=== PATIENT | male | born 1935 ===

== ENCOUNTER 2017-01-11 15:28 | Outpatient (CLI) | payer MEDICARE, OTHER ==
--- NOTE | 2017-01-11 16:20 | XRay Report ---
PA and lateral chest: The cardiac contour is slightly enlarged. There is no overt vascular congestion. There is mild blunting of both costophrenic angles. No pulmonary infiltrates in the lungs appear well-aerated. No prior study for comparison. Impression: Nonspecific small bilateral effusions. Mild cardiac enlargement but no failure pattern.
== END 2017-01-11 15:29 | disposition home or self-care (01) ==
LOC: SPVIMAG 15:28
PROVIDERS: ATTEND Internal Medicine Hematology & Oncology
DX: I51.7 Cardiomegaly (principal); J90 Pleural effusion, not elsewhere classified; D69.6 Thrombocytopenia, unspecified; R50.9 Fever, unspecified; R05 Cough
CPT/HCPCS: 71020